=== PATIENT | female | born 1975 | race Two or more races ===

== ENCOUNTER 2016-07-18 02:17 | Emergency (ER) | payer OTHER ==
[2016-07-18 02:31] VITALS: RESP 16
--- NOTE | 2016-07-18 02:35 | EDPHY ---
H & P Stated Complaint: L flank pain, urinary leakage/bleeding from urostomy site HPI/ROS: HPI CHIEF COMPLAINT: Left flank pain, hematuria HISTORY OF PRESENT ILLNESS: This patient very pleasant 41-year-old female, significant past medical history for cervical cancer status post radical hysterectomy, and only has 1 kidney her right kidney is still retain but atrophy , left kidney still functioning, she presents emergency room after she was rest tonight she has a urostomy in her abdomen she self caths. [facility] did self catheterization noticed some blood and then began having left flank pain. They brought her here to the emergency room for evaluation. At this time she tells me her left flank pain is 3/10. Hematuria. Denies silvano pus. Denies fever, denies chest pain or shortness of breath. No abdominal pain. Does admit to having nausea. She thinks she may have an infection in her urine. Past Medical History: Cervical cancer Past Surgical History: Radical hysterectomy Social History: Denies daily use of drugs alcohol tobacco products Family History: Noncontributory ROS REVIEW OF SYSTEMS: A comprehensive 10 point review of systems is otherwise negative aside from elements mentioned in the history of present illness. Exam Constitutional appears well nontoxic, triage nursing summary reviewed, vital signs reviewed, awake/alert. Eyes normal conjunctivae and sclera, EOMI, PERRLA. HENT normal inspection, atraumatic, moist mucus membranes, no epistaxis, neck supple/ no meningismus, no raccoon eyes. Respiratory clear to auscultation bilaterally, normal breath sounds, no respiratory distress, no wheezing. Cardiovascular rate normal, regular rhythm, no murmur, no edema, distal pulses normal. Gastrointestinal right lower abdomen urostomy site present. Pain, clean, no signs of infection, soft, non-tender, no rebound, no guarding, normal bowel sounds, no distension, no pulsatile mass. Genitourinary no CVA tenderness. Musculoskeletal no midline vertebral tenderness, full range of motion, no calf swelling, no tenderness of extremities, no meningismus, good pulses, neurovascularly intact. Skin pink, warm, & dry, no rash, skin atraumatic. Neurologic awake, alert and oriented x 3, AAOx3, moves all 4 extremities equally, motor intact, sensory intact, CN II-XII intact, normal cerebellar, normal vision, normal speech. Psychiatric normal mood/affect. Heme/Lymph/Immune no lymphadenopathy. Differential Diagnosis: Includes but is not limited to in a particular order, UTI, cystitis, pyelonephritis, kidney stone Medical Decision Making: Plan for this patient Tylenol for pain, IV established IV fluid bolus, check basic blood work including CBC and electrolytes, check urinalysis. Re-evaluation: Urinalysis resulted. UTI. Will give 1 g IV Rocephin here in the emergency room. Keflex prescription. [id number]: Blood work review, urinalysis reviewed shows UTI. Cystitis. IV Rocephin given in the emergency room. Culture has been sent. Patient given prescription for Keflex. She is medically cleared for fdc. No evidence of sepsis. Specifically no fever no tachycardia. Very mild white count. Recommend Keflex. Strict return precautions given to the patient she understands return emergency room she has worsening abdominal pain, fever, vomiting. Worsening flank pain. Keflex for UTI. Source: Patient - Personal History LMP (Females 10-55): Hysterectomy Current Tetanus/Diphtheria Vaccine: Yes Current Tetanus Diphtheria and Acellular Pertussis (TDAP): Yes - Medical/Surgical History Hx Asthma: Yes Hx Chronic Respiratory Disease: No Hx Diabetes: No Hx Cardiac Disease: Yes Hx Renal Disease: No Hx Cirrhosis: No Hx Alcoholism: No Hx HIV/AIDS: No Hx Splenectomy or Spleen Trauma: No Other PMH: PMHx: asthma, cervical cancer, only 1 functioning kidney - left, "hole in heart.". PSHx: complete hysterectomy, 3 c sections, appy, R thumb, nephrostomy, bladder pouch, urostomy, colostomy with reversal, 1/2 of vaginal wall reconstruction - Social History Smoking Status: Never smoked Constitutional: Initial Vital Signs Temperature (C) 36.6 C 07/18/16 02:27 Heart Rate 90 07/18/16 02:27 Respiratory Rate 16 07/18/16 02:27 Blood Pressure 119/62 07/18/16 02:27 O2 Sat (%) 98 07/18/16 02:27 O2 Delivery Mode Room Air Allergies/Adverse Reactions: codeine Allergy (Severe, Verified 11/30/11 09:39) Anaphylaxis hydromorphone HCl [From Dilaudid] Allergy (Severe, Verified 12/28/11 12:11) Vomiting Home Medications: Medication Instructions Recorded ESOMEPRAZOLE MAG TRIHYDRATE 40 mg PO DAILY 11/30/11 [NEXIUM] LORazepam [Ativan 1 mg (RX)] 0.5 mg PO Q6H PRN 11/30/11 oxyCODONE CR [Oxycontin] 30 mg PO Q8H 11/30/11 oxyCODONE IR [Oxycodone Ir (*)] 10 mg PO Q4-6PRN PRN 11/30/11 Amoxicillin Trihydrate 2 cap PO Q12 10 Days 12/24/13 [Amoxicillin 500mg capsule] Antidepressant,Nos 12/24/13 Cymbalta 12/24/13 Fluticasone Nasal [Flonase nasal 2 sprays NASAL DAILY #1 mdi 12/24/13 spray] LYRICA 12/24/13 Cephalexin [Keflex (*)] 500 mg PO Q6H #28 cap 07/18/16 Medical Decision Making - Data Points Laboratory Results: Laboratory Results 07/18/16 02:50 07/18/16 02:50 07/18/16 07/18/16 07/18/16 02:50 02:50 02:32 WBC 11.07 10^3/uL H 10^3/uL (3.80-9.50) RBC 3.76 10^6/uL L 10^6/uL (4.18-5.33) Hgb 9.5 g/dL L g/dL (12.6-16.3) Hct 30.8 % L % (38.0-47.0) MCV 81.9 fL fL (81.5-99.8) MCH 25.3 pg L pg (27.9-34.1) MCHC 30.8 g/dL L g/dL (32.4-36.7) RDW 14.7 % % (11.5-15.2) Plt Count 358 10^3/uL 10^3/uL (150-400) MPV 9.7 fL fL (8.7-11.7) Neut % (Auto) 82.1 % H % (39.3-74.2) Lymph % (Auto) 11.8 % L % (15.0-45.0) Bl[place] % (Auto) 5.0 % % (4.5-13.0) Eos % (Auto) 0.5 % L % (0.6-7.6) Baso % (Auto) 0.3 % % (0.3-1.7) Nucleat RBC Rel Count 0.0 % % (0.0-0.2) Absolute Neuts (auto) 9.10 10^3/uL H 10^3/uL (1.70-6.50) Absolute Lymphs (auto) 1.31 10^3/uL 10^3/uL (1.00-3.00) Absolute Monos (auto) 0.55 10^3/uL 10^3/uL (0.30-0.80) Absolute Eos (auto) 0.05 10^3/uL 10^3/uL (0.03-0.40) Absolute Basos (auto) 0.03 10^3/uL 10^3/uL (0.02-0.10) Absolute Nucleated RBC 0.00 10^3/uL 10^3/uL (0-0.01) Immature Gran % 0.3 % % (0.0-1.1) Immature Gran # 0.03 10^3/uL 10^3/uL (0.00-0.10) Sodium 142 mEq/L mEq/L (134-144) Potassium 3.9 mEq/L mEq/L (3.5-5.2) Chloride 110 mEq/L mEq/L (97-110) Carbon Dioxide 18 mEq/l L mEq/l (22-31) Anion Gap 14 mEq/L mEq/L (8-16) BUN 26 mg/dL H mg/dL (7-23) Creatinine 1.0 mg/dL mg/dL (0.6-1.0) Estimated GFR > 60 Glucose 102 mg/dL H mg/dL (70-100) Calcium 9.5 mg/dL mg/dL (8.5-10.4) Urine Color YELLOW Urine Appearance HAZY Urine pH 7.0 (5.0-7.5) Ur Specific [place] 1.011 (1.002-1.030) Urine Protein NEGATIVE (NEGATIVE) Urine Ketones TRACE H (NEGATIVE) Urine Blood NEGATIVE (NEGATIVE) Urine Nitrate NEGATIVE (NEGATIVE) Urine Bilirubin NEGATIVE (NEGATIVE) Urine Urobilinogen NEGATIVE EU EU (0.2-1.0) Ur Leukocyte Esterase 1+ H (NEGATIVE) Urine RBC 3-5 /hpf H /hpf (0-3) Urine WBC 25-50 /hpf H /hpf (0-3) Ur Epithelial Cells Not Reported Urine Bacteria TRACE /hpf H /hpf (NONE SEEN) Ur Culture Indicated? INDICATED H (NI) Urine Glucose NEGATIVE (NEGATIVE) Medications Given: Discontinued Medications Sodium Chloride (Ns) 1,000 mls @ 0 mls/hr IV ONCE ONE PRN Reason: Wide Open Stop: 07/18/16 02:40 Last Admin: 07/18/16 03:07 Dose: 1,000 mls Ceftriaxone Sodium/Dextrose (Rocephin 1 Gm (Premix)) 50 mls @ 100 mls/hr IV EDNOW ONE PRN Reason: Protocol Stop: 07/18/16 03:34 Last Admin: 07/18/16 03:16 Dose: 50 mls Ondansetron HCl (Zofran) 4 mg IVP EDNOW ONE Stop: 07/18/16 03:33 Last Admin: 07/18/16 03:45 Dose: 4 mg Departure - Departure Disposition: Home, Routine, Self-Care Clinical Impression: Cystitis Condition: Good Instructions: Urinary Tract Infection in Women (ED), Dysuria (ED) Additional Instructions: 1. Drink lots of fluids stay well-hydrated 2. Take her Keflex prescription as prescribed 3. return emergency room if you have worsening pain, fever, vomiting. Referrals: Patient,NotPresent [Unknown] - As per Instructions Prescriptions: Cephalexin [Keflex (*)] 500 mg PO Q6H #28 cap
[2016-07-18] MEDS ORDERED: NS 1,000 ML IV ONE (02:39)
[2016-07-18 02:40] LABS: COLOR YELLOW; LEUKOCYTE ESTERASE,URINE 1+ (NEGATIVE); NITRITE,URINE NEGATIVE (NEGATIVE)
[2016-07-18 02:44] LABS: BACTERIA TRACE /hpf (NONE SEEN); WBC,URINE 25-50 /hpf (0-3)
[2016-07-18 03:08] LABS: % IMMATURE GRANULYOCYTES 0.3 % (0.0-1.1); ABSOLUTE IMMATURE GRANULOCYTES 0.03 10^3/uL (0.00-0.10); ADD DIFF? NO; ADD MORPH? NO; ADD SCAN? NO; ATYPICAL LYMPHOCYTE FLAG 0 (0-99); FRAGMENT RBC FLAG 0 (0-99); HEMATOCRIT 30.8 % (38.0-47.0); HEMOGLOBIN 9.5 g/dL (12.6-16.3); LEFT SHIFT FLG 0 (0-99); LIPEMIA HEMOLYSIS FLAG 80 (0-99); MEAN CELL HEMOGLOBIN 25.3 pg (27.9-34.1); MEAN CELL HEMOGLOBIN CONCENTR. 30.8 g/dL (32.4-36.7); MEAN CELL VOLUME 81.9 fL (81.5-99.8); MEAN PLATELET VOLUME 9.7 fL (8.7-11.7); PLATELET CLUMPS FLAG 10 (0-99); PLATELET COUNT 358 10^3/uL (150-400); RED BLOOD CELL COUNT 3.76 10^6/uL (4.18-5.33); RED CELL DISTRIBUTION WIDTH 14.7 % (11.5-15.2)
[2016-07-18 03:18] LABS: ANION GAP 14 mEq/L (8-16); CALCIUM 9.5 mg/dL (8.5-10.4); CARBON DIOXIDE 18 mEq/l (22-31); CHLORIDE 110 mEq/L (97-110); GLOMERULAR FILTRATION RATE > 60; GLUCOSE 102 mg/dL (70-100); POTASSIUM 3.9 mEq/L (3.5-5.2); SODIUM 142 mEq/L (134-144)
[2016-07-18] MEDS ORDERED: ONDANSETRON 4 MG/2 ML VIAL IVP ONE (03:32)
[2016-07-18 04:23] VITALS: BP 100/74; PULSE 95; TEMP 98.1; O2SAT 97
== END 2016-07-18 04:21 | disposition home or self-care (01) ==
DX: N30.91 Cystitis, unspecified with hematuria (principal); B95.4 Other streptococcus as the cause of diseases classified elsewhere; J45.909 Unspecified asthma, uncomplicated; Z85.41 Personal history of malignant neoplasm of cervix uteri; Z90.710 Acquired absence of both cervix and uterus
CPT/HCPCS: 96365; J0696; J2405